=== PATIENT | female | born 1995 | race Two or more races ===

== ENCOUNTER 2019-03-04 08:42 | Emergency (ER) | payer MEDICAID ==
[~2019-03-04] VITALS: Ht 167.6 cm; Wt 65.8 kg
[2019-03-04 09:06] VITALS: BP 145/90
[2019-03-04] MEDS ORDERED: AZITHROMYCIN 250 MG TAB PO ONE (09:15)
[2019-03-04] MEDS ORDERED: cefTRIAXone SODIUM 250 MG VL IM ONE (09:15)
[2019-03-04 10:39] LABS: Urine Bacteria NONE SEEN /hpf (None Seen); Urine Blood Negative /uL (Negative); Urine Mucus FEW (None Seen); Urine Specific Gravity 1.026 (1.001-1.035); Urine WBC 3 /hpf (0 - 5)
== END 2019-03-04 10:24 | disposition left against medical advice (07) ==
LOC: ER 08:42
DX: N89.8 Other specified noninflammatory disorders of vagina (principal); F17.210 Nicotine dependence, cigarettes, uncomplicated; Z59.0 Homelessness; Z91.013 Allergy to seafood
CPT/HCPCS: 81001; 87086; 96372; 99283; J0696

== ENCOUNTER 2019-08-02 10:42 | Emergency (ER) | payer MEDICAID | END 2019-08-02 11:02 | disposition left against medical advice (07) | LOC: ER 10:42 | DX: K13.79 Other lesions of oral mucosa (principal); Z53.21 Procedure and treatment not carried out due to patient leaving prior to being seen by health care provider ==

== ENCOUNTER 2019-08-29 14:22 | Emergency (ER) | payer SELFPAY ==
[~2019-08-29] VITALS: Ht 170.2 cm; Wt 63.5 kg
[2019-08-29] MEDS: ONDANSETRON HCL 4 MG/2 ML VIAL IV ONE (14:45)
[2019-08-29 15:00] VITALS: BP 109/74
[2019-08-29 15:01] LABS: Basophils # (auto) 0 uL; Basophils % (auto) 0.3 % (0.0-2.0); Hemoglobin 12.3 g/dL (12.2-16.2)
[2019-08-29 15:03] LABS: Eosinophils # (auto) 0 uL; Eosinophils % (auto) 0.5 % (0.0-7.0); Hematocrit 39.1 % (36.0-46.0); Lymphocytes # (auto) 2.2 uL; Lymphocytes % (auto) 24.4 % (10.0-50.0); Mean Corpuscular Hemoglobin 22.8 pg (28.0-32.0); Mean Corpuscular Hgb Conc. 31.4 g/dL (32.0-36.0); Mean Corpuscular Volume 72.6 fL (80.0-100.0); Monocytes # (auto) 0.6 uL; Monocytes % (auto) 6.1 % (0.0-12.0); Neutrophils # (auto) 6.3 uL; Neutrophils % (auto) 68.7 % (37.0-80.0); Platelet Count (auto) 347 10^3/uL (140-450); Red Blood Cells 5.39 10^6/uL (4.0-5.20); Red Cell Distribution Width 15.2 % (11.8-14.3); White Blood Cell 9.2 10^3/uL (4.4-10.8)
[2019-08-29 15:19] LABS: Albumin 3.6 g/dL (3.4-5.0); Anion Gap 5 (5-15); Blood Alcohol < 3.0 mg/dL (0-5); Blood Urea Nitrogen 13 mg/dL (7-18); Calcium 8.4 mg/dL (8.5-10.1); Carbon Dioxide 28 mmol/L (21-32); Chloride 108 mmol/L (98-107); Glucose 158 mg/dL (74-106); Potassium 3.5 mmol/L (3.5-5.1); Sodium 141 mmol/L (136-145)
[2019-08-29 15:23] LABS: Alanine Aminotransferase 18 U/L (13-56); Alkaline Phosphatase 83 U/L (45-117); Aspartate Aminotransferase 20 U/L (15-37); BUN/Creatinine Ratio 16.5; Bilirubin, Total 0.3 mg/dL (0.2-1.0); GFR African American 114 mL/min; GFR Non-African American 94 mL/min; Total Protein 7.5 g/dL (6.4-8.2)
== END 2019-08-29 17:04 | disposition home or self-care (01) ==
LOC: EDBD 14:22 → ER 14:22
DX: T40.601A Poisoning by unspecified narcotics, accidental (unintentional), initial encounter (principal); F17.210 Nicotine dependence, cigarettes, uncomplicated; F15.10 Other stimulant abuse, uncomplicated; Z59.0 Homelessness; Z91.013 Allergy to seafood; Y92.89 Other specified places as the place of occurrence of the external cause
CPT/HCPCS: 36415; 80053; 80320; 84702; 85025; 93005; 99284; J2405

== ENCOUNTER 2020-12-18 14:55 | Emergency (ER) | payer MEDICAID ==
[~2020-12-18] VITALS: Ht 167.6 cm; Wt 77.1 kg
[2020-12-18 15:08] VITALS: BP 155/114
[2020-12-18] MEDS ORDERED: IBUPROFEN 800 MG TAB PO ONE (16:15)
[2020-12-18] MEDS ORDERED: ACETAMINOPHEN 500 MG TAB PO ONE (16:15)
== END 2020-12-18 16:33 | disposition home or self-care (01) ==
LOC: ER 14:57
DX: K04.7 Periapical abscess without sinus (principal); F17.210 Nicotine dependence, cigarettes, uncomplicated; F15.10 Other stimulant abuse, uncomplicated; F11.10 Opioid abuse, uncomplicated; Z59.0 Homelessness; Z91.013 Allergy to seafood

== ENCOUNTER 2020-12-30 14:14 | Emergency (ER) | payer MEDICAID ==
[~2020-12-30] VITALS: Ht 167.6 cm; Wt 77.1 kg
[2020-12-30 14:38] LABS: Basophils # (auto) 0 10 ^3/uL (0-0.2); Basophils % (auto) 0.2 % (0.0-2.0); Eosinophils # (auto) 0 10 ^3/uL (0-0.8); Eosinophils % (auto) 0.3 % (0.0-7.0)
[2020-12-30 14:40] LABS: Hematocrit 42.5 % (36.0-46.0); Hemoglobin 14.7 g/dL (12.2-16.2); Lymphocytes # (auto) 2.1 10 ^3/uL (0.4-5.4); Lymphocytes % (auto) 19.8 % (10.0-50.0); Mean Corpuscular Hemoglobin 26.2 pg (28.0-32.0); Mean Corpuscular Hgb Conc. 34.5 g/dL (32.0-36.0); Monocytes # (auto) 0.7 10 ^3/uL (0-1.3); Monocytes % (auto) 6.3 % (0.0-12.0); Neutrophils # (auto) 7.7 10 ^3/uL (1.6-8.6); Neutrophils % (auto) 73.4 % (37.0-80.0); Nucleated Red Blood Cells % 0.1 %; Platelet Count (auto) 285 10^3/uL (140-450); Red Blood Cells 5.59 10^6/uL (4.0-5.20); Red Cell Distribution Width 19.5 % (11.8-14.3); White Blood Cell 10.4 10^3/uL (4.4-10.8)
[2020-12-30 14:54] LABS: Albumin 3.1 g/dL (3.4-5.0); Calcium 8.6 mg/dL (8.5-10.1); Potassium 3.7 mmol/L (3.5-5.1)
[2020-12-30 14:57] LABS: Bilirubin, Total 0.3 mg/dL (0.2-1.0); Total Protein 7.1 g/dL (6.4-8.2)
[2020-12-30 17:04] LABS: Urine Bacteria FEW /hpf (None Seen); Urine Blood Negative /uL (Negative); Urine Mucus MODERATE (None Seen); Urine Specific Gravity 1.033 (1.001-1.035); Urine WBC 28 /hpf (0 - 5)
[2020-12-30 17:09] LABS: Alcohol, Urine < 3.0 mg/dL (0-10); Amphetamine Screen, Urine NEGATIVE (NEGATIVE); Barbiturate Scree,Urine NEGATIVE (NEGATIVE); Benzodiazephine Screen, Urine NEGATIVE (NEGATIVE); Cannabinoid Screen, Urine NEGATIVE (NEGATIVE); Cocaine Screen, Urine NEGATIVE (NEGATIVE); Opiate Scree,Urine NEGATIVE (NEGATIVE); Phencyclidine Screen, Urine NEGATIVE (NEGATIVE)
[2020-12-30 17:53] VITALS: BP 151/95
== END 2020-12-30 18:20 | disposition home or self-care (01) ==
LOC: ER 14:14
DX: O23.42 Unspecified infection of urinary tract in pregnancy, second trimester (principal); O16.2 Unspecified maternal hypertension, second trimester; Z3A.15 15 weeks gestation of pregnancy
CPT/HCPCS: 36415; 76805; 80053; 80307; 81001; 84702; 85025

== ENCOUNTER 2021-01-07 13:39 | Emergency (ER) | payer MEDICAID ==
[~2021-01-07] VITALS: Ht 170.2 cm; Wt 77.1 kg
[2021-01-07] MEDS ORDERED: cefTRIAXone SOD 1,000 MG VL IM ONE (15:30)
[2021-01-07] MEDS ORDERED: ACETAMINOPHEN 500 MG TAB PO ONE (15:30)
[2021-01-07 16:06] VITALS: BP 160/90
== END 2021-01-07 16:29 | disposition home or self-care (01) ==
LOC: ER 13:39
DX: O23.41 Unspecified infection of urinary tract in pregnancy, first trimester (principal); I10 Essential (primary) hypertension; K02.9 Dental caries, unspecified; O99.331 Smoking (tobacco) complicating pregnancy, first trimester; F17.210 Nicotine dependence, cigarettes, uncomplicated; Z91.013 Allergy to seafood; Z3A.12 12 weeks gestation of pregnancy
CPT/HCPCS: 81002; 96372; 99283; J0696

== ENCOUNTER 2021-04-09 16:10 | Observation (INO) | payer MEDICAID ==
[~2021-04-09] VITALS: Ht 167.6 cm; Wt 88.5 kg
[2021-04-09] MEDS ORDERED: BETAMETHASONE ACET (30mg/5ml) 5ml Vial 6mg/ml IM SCH (22:00)
== END 2021-04-09 18:00 | disposition left against medical advice (07) ==
LOC: LDRP 16:10
PROVIDERS: ADMIT Obstetrics & Gynecology; ATTEND Obstetrics & Gynecology
DX: O10.013 Pre-existing essential hypertension complicating pregnancy, third trimester (principal); Z3A.30 30 weeks gestation of pregnancy; Z53.21 Procedure and treatment not carried out due to patient leaving prior to being seen by health care provider
CPT/HCPCS: 59025; 76818; 81002; 94760; G0378; G0379

== ENCOUNTER 2021-05-14 12:57 | Inpatient (IN) | payer MEDICAID ==
[~2021-05-14] VITALS: Ht 167.6 cm; Wt 96.6 kg
[2021-05-14] MEDS ORDERED: LACTATED RINGER'S 1,000 ML IV ONE (13:30)
[2021-05-14] MEDS ORDERED: BETAMETHASONE ACET (30mg/5ml) 5ml Vial 6mg/ml IM ONE (13:30)
[2021-05-14] MEDS ORDERED: hydrALAZINE HCL 20 MG/ML VL IV ONE (13:30)
[2021-05-14] MEDS ORDERED: MAGNESIUM SULFATE 40MG/ML 1,000 ML IV SCH (13:45)
[2021-05-14] MEDS ORDERED: MAGNESIUM SULFATE 100 ML IV ONE (13:45)
[2021-05-14] MEDS ORDERED: LORazepam 2MG/ML-1ML VIAL IV ONE (13:45)
[2021-05-14] MEDS: hydrALAZINE HCL 20 MG/ML VL IV PRN ×2 (14:42→15:38)
[2021-05-14 14:57] LABS: Basophils # (auto) 0 10 ^3/uL (0-0.2); Basophils % (auto) 0.3 % (0.0-2.0); Eosinophils # (auto) 0.1 10 ^3/uL (0-0.8); Eosinophils % (auto) 0.8 % (0.0-7.0); Hemoglobin 13.2 g/dL (12.2-16.2); Lymphocytes # (auto) 1.8 10 ^3/uL (0.4-5.4); Lymphocytes % (auto) 20.2 % (10.0-50.0); Mean Corpuscular Hgb Conc. 34.7 g/dL (32.0-36.0); Mean Corpuscular Volume 80.7 fL (80.0-100.0); Monocytes # (auto) 0.6 10 ^3/uL (0-1.3); Monocytes % (auto) 6.7 % (0.0-12.0); Neutrophils # (auto) 6.4 10 ^3/uL (1.6-8.6); Nucleated Red Blood Cells % 0.3 %; Red Cell Distribution Width 15.5 % (11.8-14.3); White Blood Cell 8.8 10^3/uL (4.4-10.8)
[2021-05-14] MEDS ORDERED: LABE300T3 PO (14:57)
[2021-05-14] MEDS ORDERED: ASPI-543 PO (14:58)
[2021-05-14 15:05] LABS: Albumin 1.6 g/dL (3.4-5.0); Calcium 7.7 mg/dL (8.5-10.1)
[2021-05-14 15:09] LABS: BUN/Creatinine Ratio 14.9; Bilirubin, Total 0.3 mg/dL (0.2-1.0); Total Protein 5.3 g/dL (6.4-8.2); Uric Acid 6.3 mg/dL (2.6-6.0)
[2021-05-14 15:10] LABS: INR 0.9 (0.9-1.15); Partial Thromboplastin Time 29.1 sec (23.6-33.0)
[2021-05-14 15:18] LABS: Urine Bacteria FEW /hpf (None Seen); Urine Blood Negative /uL (Negative); Urine Hyaline Cast FEW /lpf (0 - 2); Urine Mucus FEW (None Seen); Urine Specific Gravity 1.016 (1.001-1.035); Urine WBC 34 /hpf (0 - 5)
[2021-05-14 15:33] LABS: Amphetamine Screen, Urine NEGATIVE (NEGATIVE); Barbiturate Scree,Urine NEGATIVE (NEGATIVE); Benzodiazephine Screen, Urine NEGATIVE (NEGATIVE); Cannabinoid Screen, Urine NEGATIVE (NEGATIVE); Cocaine Screen, Urine NEGATIVE (NEGATIVE); Opiate Scree,Urine NEGATIVE (NEGATIVE); Phencyclidine Screen, Urine NEGATIVE (NEGATIVE)
[2021-05-14 15:34] LABS: Alcohol, Urine < 3.0 mg/dL (0-10)
[2021-05-14 15:43] LABS: Protein, Urine 861.1 mg/dL (0.0-11.9)
[2021-05-14] MEDS ORDERED: LABETALOL HCL 200 MG TAB PO ONE (16:00)
[2021-05-17 06:06] LABS: RPR Non Reactive (Non Reactive)
== END 2021-05-14 16:40 | disposition short-term general hospital (02) | DRG 566 ==
LOC: LDRP 12:57 → OBSVTOIN 13:50
PROVIDERS: ADMIT Obstetrics & Gynecology Obstetrics; ATTEND Obstetrics & Gynecology Obstetrics
DX: O11.3 Pre-existing hypertension with pre-eclampsia, third trimester (principal); Z3A.35 35 weeks gestation of pregnancy; Z91.013 Allergy to seafood; Z79.82 Long term (current) use of aspirin; Z91.19 Patient's noncompliance with other medical treatment and regimen; O10.913 Unspecified pre-existing hypertension complicating pregnancy, third trimester
CPT/HCPCS: 36415; 59025; 76805; 76818; 80053; 80307; 81001; 81002; 82570; 83036; 84156; 84550; 85025; 85362; 85379; 85610; 85730; 86592; 86703; 86762; 87081; 87340; 94760; 96360; 96365; 96366; 96372; 96374; 96375; G0378

== ENCOUNTER 2024-09-11 22:38 | Emergency (ER) | payer MEDICAID ==
[~2024-09-11] VITALS: Ht 170.2 cm; Wt 89.5 kg
[~2024-09-11 22:38] MED LIST: ASPI-543 PO; LABE300T5 PO
[2024-09-11 22:55] VITALS: BP 161/118; PULSE 106; RESP 16; O2SAT 95
[2024-09-13] MEDS ORDERED: AUG875T PO (20:27)
[2024-09-13] MEDS ORDERED: LORA-1130 PO (20:27)
== END 2024-09-12 02:40 | disposition left against medical advice (07) ==
LOC: ER 22:38
DX: H92.02 Otalgia, left ear (principal); Z53.21 Procedure and treatment not carried out due to patient leaving prior to being seen by health care provider

== ENCOUNTER 2024-09-13 20:07 | Emergency (ER) | payer MEDICAID ==
[~2024-09-13] VITALS: Ht 170.2 cm; Wt 88.5 kg
[2024-09-13 20:07] VITALS: PULSE 100; RESP 20; O2SAT 96
[2024-09-13] MEDS ORDERED: AUG875T PO (20:27)
[2024-09-13] MEDS ORDERED: LORA-1130 PO (20:27)
--- NOTE | 2024-09-13 20:27 | ED.PDOC ---
History of Present Illness HPI Comments left ear pain Comments left ear pain for 3 days Time Seen by MD: 20:13 Primary Care Provider: VIVIENNE Mckeon Notes: Nurses Notes Allergies: Uncoded Allergies: SHELL FISH (Allergy, Unknown, 12/31/15) Home Meds Reported Medications Aspirin (Aspir-Low) 81 Mg Tab, 81 MG PO DAILY for 30 Days, MG 05/14/21 Labetalol Hcl (Labetalol Hcl) 300 Mg Tab, 300 MG PO BID for 30 Days, MG 05/14/21 Information Source: Patient, Friend Mode of Arrival: Ambulatory Severity: Mild Timing: Days Duration: Since onset Past Medical History PAST MEDICAL HISTORY: Anemia, HTN Surgical History: Denies all surgeries HAND CUTTER APPRENTICE History: No Pertinent HAND CUTTER APPRENTICE History Family History Family History: Reviewed,noncontributory to illness, Family hx of DM, Family hx of Cancer Social History Smoker: Cigarettes, Less Than 1 Pack/Day Alcohol: Occasionally Drugs: Heroin, Methamphetamine Lives In: Homeless EENTM: reports: ear pain Physical Exam General Appearance: No Apparent Distress, Normal HEENT: Normal ENT Inspection, Pharynx Normal, TM Abnormal (L) (left TM angry) Neck: Full Range of Motion, Non-Tender, Normal, Normal Inspection Respiratory: Chest Non-Tender, Lungs Clear, No Accessory Muscle Use, No Respiratory Distress, Normal Breath Sounds Cardiovascular: No Edema, No JVD, No Murmur, No Gallop, Normal Peripheral Pulses, Regular Rate/Rhythm Breast Exam: Deferred Gastrointestinal: No Organomegaly, Non Tender, No Pulsatile Mass, Normal Bowel Sounds, Soft Genitalia: Deferred Pelvic: Deferred Rectal: Deferred Extremities: No calf tenderness, Normal capillary refill, Normal inspection, Normal range of motion, Non-tender, No pedal edema Musculoskeletal : Apperance: Normal Neurologic: Alert, direct mail clerk II-XII nml as Tested, No Motor Deficits, Normal Affect, Normal Mood, No Sensory Deficits Cerebellar Function: Normal Reflexes: Normal Skin: Dry, Normal Color, Warm Lymphatic: No Adenopathy Was a procedure done? Was a procedure done?: No Differential Dx Considerations may include: OM OE, TM rupture, FB in ear canal, eustachian tube dysfunction Time of 1ST Reevaluation: 20:26 Reevaluation 1ST: Unchanged Patient Education/Counseling: Diagnosis, Treatment, Prognosis, Need For Follow Up Family Education/Counseling: Diagnosis, Treatment, Prognosis, Need For Follow Up Departure 1 Departure Time of Disposition: 20:26 Impression: Primary Impression: Otitis media Qualified Codes: H66.002 - Acute suppurative otitis media without spontaneous rupture of ear drum, left ear Disposition: HOME / SELF CARE / HOMELESS Condition: Good e-Prescriptions Loratadine & Pseudoephedrine (Claritin-D 24 Hour 10-240 mg) 1 Tab Tab 1 TAB PO DAILY for 7 Days, #7 TAB Prov: JAKUB HERNANDEZ MD 09/13/24 Amoxicillin & Pot Clavulanate (AUGMENTIN TABLET) 875 Mg Tb 875 MG PO BID for 7 Days, #14 TAB Prov: JAKUB HERNANDEZ MD 09/13/24 Discharged With: Self, Relative Critical Care Note Critical Care Time?: No Stability Stability form required: No JAKUB HERNANDEZ MD Sep 13, 2024 20:27
[2024-09-13 20:50] VITALS: BP 155/88; PULSE 99; RESP 18; TEMP 98.9; O2SAT 96
== END 2024-09-13 21:03 | disposition home or self-care (01) ==
LOC: ER 20:07
DX: H66.92 Otitis media, unspecified, left ear (principal); I10 Essential (primary) hypertension; F17.210 Nicotine dependence, cigarettes, uncomplicated; Z59.00 Homelessness unspecified; Z91.013 Allergy to seafood

== ENCOUNTER 2024-09-16 05:51 | Emergency (ER) | payer MEDICAID ==
[~2024-09-16] VITALS: Ht 170.2 cm; Wt 85.4 kg
[~2024-09-16 05:51] MED LIST changes: +AUG875T PO; +LORA-1130 PO
[2024-09-16 06:26] VITALS: BP 144/102; PULSE 92; RESP 14; O2SAT 93
[2024-09-16] MEDS ORDERED: PSEUDOEPHEDRINE HCL 30 MG TAB PO ONE (07:45)
[2024-09-16] MEDS ORDERED: ACETAMINOPHEN 325 MG TAB PO ONE (07:45)
--- NOTE | 2024-09-16 07:45 | ED.PDOC ---
History of Present Illness HPI Comments 29 year old female presents to the ED with chief complaint of flu-like illness. Patient reports that she has been experiencing a cough with associated nasal congestion, left ear clogging, and left ear pain for the past week. Patient relays that she was seen 2 days ago and had been prescribed antibiotics, how ever, no relief has been noted. Patient states Claritin was not covered by her insurance and she was not able to get any. Patient denies any N/V/D, fever, chills, dizziness, headache, or SOB. Chief Complaint: Flu like Time Seen by MD: 07:41 Primary Care Provider: VIVIENNE MINOR Reviewed Notes: Nurses Notes, Medications, Allergies Allergies: Uncoded Allergies: SHELL FISH (Allergy, Unknown, 12/31/15) Home Meds Active Scripts Loratadine & Pseudoephedrine (Claritin-D 24 Hour 10-240 mg) 1 Tab Tab, 1 TAB PO DAILY for 7 Days, #7 TAB Prov:JAKUB HERNANDEZ MD 09/13/24 Amoxicillin & Pot Clavulanate (AUGMENTIN TABLET) 875 Mg Tb, 875 MG PO BID for 7 Days, #14 TAB Prov:JAKUB HERNANDEZ MD 09/13/24 Reported Medications Aspirin (Aspir-Low) 81 Mg Tab, 81 MG PO DAILY for 30 Days, MG 05/14/21 Labetalol Hcl (Labetalol Hcl) 300 Mg Tab, 300 MG PO BID for 30 Days, MG 05/14/21 Information Source: Patient Mode of Arrival: Ambulatory Severity: Moderate Timing: Weeks Duration: Since onset Prehospital treatment: None Past Medical History PAST MEDICAL HISTORY: Anemia, HTN Surgical History: Denies all surgeries ROLLED SEAT TRIMMER History: No Pertinent ROLLED SEAT TRIMMER History Family History Family History: Reviewed,noncontributory to illness, Family hx of DM, Family hx of Cancer Social History Smoker: Cigarettes, Less Than 1 Pack/Day Alcohol: Occasionally Drugs: Heroin, Methamphetamine Lives In: Homeless Constitutional: denies: chills, diaphoresis, fatigue, fever, malaise, sweats, weakness, others EENTM: reports: ear pain, hearing loss, nose congestion; denies: blurred vision, double vision, ear bleeding, ear discharge, ear drainage, ear ringing, eye pain, eye redness, mouth pain, mouth swelling, nasal discharge, nose bleeding, nose pain, photophobia, tearing, throat pain, throat swelling, voice changes, others Respiratory: reports: cough; denies: hemoptysis, orthopnea, SOB at rest, shortness of breath, SOB with excertion, stridor, wheezing, others Cardiovascular: denies: chest pain, dizzy spells, diaphoresis, Dyspnea on exertion, edema, irregular heart beat, left arm pain, lightheadedness, palpitations, PND, syncope, others Gastrointestinal: denies: abdomen distended, abdominal pain, blood streaked bowels, constipated, diarrhea, dysphagia, difficulty swallowing, hematemesis, melena, nausea, poor appetite, poor fluid intake, rectal bleeding, rectal pain, vomiting, others Genitourinary: denies: abnormal vagina bleeding, burning, dyspareunia, dysuria, flank pain, frequency, hematuria, incontinence, pain, , vagina discharge, urgency, others Neurological: denies: dizziness, fainting, headache, left sided numbness, left sided weakness, numbness, paresthesia, pre-existing deficit, right sided numbness, right sided weakness, seizure, speech problems, tingling, tremors, weakness, others Musculoskeletal: denies: back pain, gout, joint pain, joint swelling, muscle pain, muscle stiffness, neck pain, others Integumetry: denies: bruises, change in color, change in hair/nails, dryness, laceration, lesions, lumps, rash, wounds, others Allergic/Immunocompromised: denies: Difficulty Healing, Frequent Infections, Hives, Itching, others Hematologic/Lymphatic: denies: anemia, blood clots, easy bleeding, easy bruising, swollen glands, others Endocrine: denies: excessive hunger, excessive sweating, excessive thirst, excessive urination, flushing, intolerance to cold, intolerance to heat, unexplained weight gain, unexplained weight loss, others Psychiatric: denies: anxiety, bipolar disorder, depression, hopeless, panic disorder, schizophrenia, sleepless, suicidal, others All Other Systems: Reviewed and Negative Physical Exam General Appearance: No Apparent Distress, Normal HEENT: Normal ENT Inspection, PERRL/EOMI, TM Abnormal (L) (Bulging TM), TM Abnormal (R) (Bulging TM), Other (Nasal congestion) Neck: Full Range of Motion, Non-Tender, Normal, Normal Inspection Respiratory: Chest Non-Tender, Lungs Clear, No Accessory Muscle Use, No Respiratory Distress, Normal Breath Sounds Cardiovascular: No Edema, No JVD, No Murmur, No Gallop, Normal Peripheral Pulses, Regular Rate/Rhythm Breast Exam: Deferred Gastrointestinal: No Organomegaly, Non Tender, No Pulsatile Mass, Normal Bowel Sounds, Soft Genitalia: Deferred Pelvic: Deferred Rectal: Deferred Extremities: No calf tenderness, Normal capillary refill, Normal inspection, Normal range of motion, Non-tender, No pedal edema Musculoskeletal : Apperance: Normal Neurologic: Alert, insole stiffener II-XII nml as Tested, No Motor Deficits, Normal Affect, Normal Mood, No Sensory Deficits Cerebellar Function: Normal Reflexes: Normal Skin: Dry, Normal Color, Warm Lymphatic: No Adenopathy Was a procedure done? Was a procedure done?: No Differential Dx Considerations may include: Viral syndrome X-Ray, Labs, Meds, VS Vital Signs Date Time Temp Pulse Resp B/P (MAP) Pulse Ox O2 Delivery O2 Flow Rate FiO2 09/16/24 06:26 98.1 92 14 144/102 (116) 93 Time of 1ST Reevaluation: 08:41 Reevaluation 1ST: Unchanged Patient Education/Counseling: Diagnosis, Treatment Family Education/Counseling: Diagnosis, Treatment Additional Information I reviewed the following notes from patient's past medical encounters: 09/13/24 for otitis media The following tests were ordered, and results were reviewed by me: None I reviewed and agreed with the following test results read by other providers: None Additional Information was gathered from interviewing the following independent historians: Spouse I discussed treatment and results with medical personnel and spouse. Departure 1 Departure Time of Disposition: 08:06 (Patient with a viral syndrome who has been unable to take any [id number] medicines can she can not afford them. We will discharge patient with outpatient follow up.) Impression: Primary Impression: Viral syndrome Additional Impression: Ear pain Qualified Codes: H92.03 - Otalgia, bilateral Disposition: 01 HOME / SELF CARE / HOMELESS Condition: Stable Additional Instructions: You likely have a viral illness. It is important to stay well rested and well hydrated. You can take Tylenol and Motrin as needed for pain and fever. For a sore throat you can drink warm tea with honey. You can take [id number] pseudoephedrine for nasal congestion. He should follow up with your regular doctor within 1 week to ensure you are doing better. If your symptoms worsen or you have any other concerns please return to the emergency room. e-Prescriptions Pseudoephedrine (Sudafed 12 Hour) 120 Mg Tab 1 TAB PO BID PRN for 5 Days, #10 TAB Prov: YOGI MOTLEY MD 09/16/24 Ibuprofen (Ibuprofen) 400 Mg Tab 1 TAB PO Q6HPRN for 5 Days, #20 TAB Prov: YOGI MOTLEY MD 09/16/24 Acetaminophen (Tylenol) 325 Mg Tb 650 MG PO TID PRN for 5 Days, #30 TAB Prov: YOGI MOTLEY MD 09/16/24 Discharged With: Self Critical Care Note Critical Care Time?: No Stability Stability form required: No Heart Score Heart Score: Heart Score Response (Comments) Value History N/A 0 EKG N/A 0 Age N/A 0 Risk Factors N/A 0 Troponin N/A 0 Total 0 I personally scribed for YOGI MOTLEY MD ([email or web address]) on 09/16/24 at 07:45. Electronically submitted by Daryl Mitchell ([email or web address]). YOGI MOTLEY MD Sep 16, 2024 07:45
[2024-09-16] MEDS ORDERED: IBUP-1453 PO (08:08)
[2024-09-16] MEDS ORDERED: PSEU120T2 PO (08:08)
[2024-09-16] MEDS ORDERED: ACET-1079 PO (08:08)
== END 2024-09-16 08:02 | disposition home or self-care (01) ==
LOC: ER 05:51
DX: B34.9 Viral infection, unspecified (principal); H92.02 Otalgia, left ear; I10 Essential (primary) hypertension; Z59.00 Homelessness unspecified; F17.210 Nicotine dependence, cigarettes, uncomplicated; Z91.013 Allergy to seafood

== ENCOUNTER 2025-04-25 13:32 | Emergency (ER) | payer MEDICAID ==
[~2025-04-25] VITALS: Ht 170.2 cm; Wt 78.0 kg
[~2025-04-25 13:32] MED LIST changes: +ACET-1079 PO; +IBUP-1453 PO; +PSEU120T2 PO
--- NOTE | 2025-04-25 14:09 | ED.PDOC ---
Eye-HPI HPI Comments A 29 YEAR OLD FEMALE PRESENTS TO THE ED WITH COMPLAINT OF JAW PAIN. PATIENT STATES THAT SHE HAS BEEN HAVING RIGHT JAW PAIN AND SWALLOWING SINCE YESTERDAY. PATIENT STATES THAT SHE HAS MULTIPLE BROKEN TEETH. PATIENT STATES THE PAIN IS 8/10.PATIENT DENIES FEVER, CHILLS, SHORTNESS OF BREATH, CHEST PAIN, ABDOMINAL PAIN, NAUSEA, VOMITING, HEADACHE, OR OTHER COMPLAINTS. NO OTHER SYMPTOMS OR MODIFYING FACTORS AT THIS TIME. PATIENT IS ALERT, ORIENTED X 4, AND HAS STEADY GAIT. Chief Complaint: Tooth Pain Time Seen by MD: 14:05 Primary Care Provider: VIVIENNE MINOR Reviewed Notes: Nurses Notes, Medications, Allergies Allergies: Uncoded Allergies: SHELL FISH (Allergy, Unknown, 12/31/15) Home Meds Active Scripts Ibuprofen (Ibuprofen) 800 Mg Tab, 1 TAB PO TID, #30 TAB Prov:MELISSA CARPENTER 04/25/25 Clindamycin Hcl (Clindamycin Hcl) 300 Mg Cap, 1 CAP PO TID, #30 CAP Prov:MELISSA CARPENTER 04/25/25 Pseudoephedrine (Sudafed 12 Hour) 120 Mg Tab, 1 TAB PO BID PRN for 5 Days, #10 TAB Prov:YOGI MOTLEY MD 09/16/24 Ibuprofen (Ibuprofen) 400 Mg Tab, 1 TAB PO Q6HPRN for 5 Days, #20 TAB Prov:YOGI MOTLEY MD 09/16/24 Acetaminophen (Tylenol) 325 Mg Tb, 650 MG PO TID PRN for 5 Days, #30 TAB Prov:YOGI MOTLEY MD 09/16/24 Loratadine & Pseudoephedrine (Claritin-D 24 Hour 10-240 mg) 1 Tab Tab, 1 TAB PO DAILY for 7 Days, #7 TAB Prov:JAKUB HERNANDEZ MD 09/13/24 Amoxicillin & Pot Clavulanate (AUGMENTIN TABLET) 875 Mg Tb, 875 MG PO BID for 7 Days, #14 TAB Prov:JAKUB HERNANDEZ MD 09/13/24 Reported Medications Aspirin (Aspir-Low) 81 Mg Tab, 81 MG PO DAILY for 30 Days, MG 05/14/21 Labetalol Hcl (Labetalol Hcl) 300 Mg Tab, 300 MG PO BID for 30 Days, MG 05/14/21 Information Source: Patient Mode of Arrival: Ambulatory Timing: Days Duration: Days Prehospital treatment: None Quality: Pain, Red Lids: Normal Conjunctiva: Normal Cornea: Normal Pupils: Normal EOM: Normal Fundus: Normal Slit lamp exam: Normal Anterior chamber: Normal Mouth Location: Right, Lower, Tooth/Teeth, Gums Mouth: Right, Lower, Premolar, Molar, Tender, Carious, Broken ENT Ear Exam: Normal Nose: Normal Sinuses: Normal Oropharynx: Normal Onset: Spontaneous Throat Exposed to: None History of: None Last Tetanus: UTD Modifying factors: Cold, Chewing Associated signs and symptoms: Tooth Pain Past Medical History PAST MEDICAL HISTORY: Anemia, HTN Surgical History: Denies all surgeries BRIEF WRITER History: No Pertinent BRIEF WRITER History Family History Family History: Reviewed,noncontributory to illness, Family hx of DM, Family hx of Cancer Social History Smoker: Cigarettes, Less Than 1 Pack/Day Alcohol: Occasionally Drugs: Heroin, Methamphetamine Lives In: Homeless Constitutional: denies: chills, diaphoresis, fatigue, fever, malaise, sweats, weakness, others EENTM: reports: mouth pain (RIGHT LOWER TOOTH PAIN ); denies: blurred vision, double vision, ear bleeding, ear discharge, ear drainage, ear pain, ear ringing, eye pain, eye redness, hearing loss, nasal discharge, nose bleeding, nose congestion, nose pain, photophobia, tearing, throat pain, throat swelling, voice changes Respiratory: denies: cough, hemoptysis, orthopnea, SOB at rest, shortness of breath, SOB with excertion, stridor, wheezing, others Cardiovascular: denies: chest pain, dizzy spells, diaphoresis, Dyspnea on exertion, edema, irregular heart beat, left arm pain, lightheadedness, palpitations, PND, syncope, others Gastrointestinal: denies: abdomen distended, abdominal pain, blood streaked bowels, constipated, diarrhea, dysphagia, difficulty swallowing, hematemesis, melena, nausea, poor appetite, poor fluid intake, rectal bleeding, rectal pain, vomiting, others Genitourinary: denies: abnormal vagina bleeding, burning, dyspareunia, dysuria, flank pain, frequency, hematuria, incontinence, pain, , vagina discharge, urgency, others Neurological: denies: dizziness, fainting, headache, left sided numbness, left sided weakness, numbness, paresthesia, pre-existing deficit, right sided n umbness, right sided weakness, seizure, speech problems, tingling, tremors, weakness, others Musculoskeletal: denies: back pain, gout, joint pain, joint swelling, muscle pain, muscle stiffness, neck pain, others Integumetry: denies: bruises, change in color, change in hair/nails, dryness, laceration, lesions, lumps, rash, wounds, others Allergic/Immunocompromised: denies: Difficulty Healing, Frequent Infections, Hives, Itching, others Hematologic/Lymphatic: denies: anemia, blood clots, easy bleeding, easy bruising, swollen glands, others Endocrine: denies: excessive hunger, excessive sweating, excessive thirst, excessive urination, flushing, intolerance to cold, intolerance to heat, unexplained weight gain, unexplained weight loss, others Psychiatric: denies: anxiety, bipolar disorder, depression, hopeless, panic disorder, schizophrenia, sleepless, suicidal, others All Other Systems: Reviewed and Negative Physical Exam General Appearance: No Apparent Distress, Normal HEENT: Normal ENT Inspection, PERRL/EOMI, Pharynx Normal, TMs Normal, Other (ERYTHEMA AND SWELLING ON RIGHT LOWER GUM AROUND TOOTH, MILD RIGHT LOWER FACIAL SWELLING, NO FACIAL REDNESS AND HARDNESS. ) Neck: Full Range of Motion, Non-Tender, Normal, Normal Inspection Respiratory: Chest Non-Tender, Lungs Clear, No Accessory Muscle Use, No Respiratory Distress, Normal Breath Sounds Cardiovascular: No Edema, No JVD, No Murmur, No Gallop, Normal Peripheral Pulses, Regular Rate/Rhythm Breast Exam: Deferred Gastrointestinal: No Organomegaly, Non Tender, No Pulsatile Mass, Normal Bowel Sounds, Soft Genitalia: Deferred Pelvic: Deferred Rectal: Deferred Extremities: No calf tenderness, Normal capillary refill, Normal inspection, Normal range of motion, Non-tender, No pedal edema Musculoskeletal : Apperance: Normal Neurologic: Alert, carbide tool maker II-XII nml as Tested, No Motor Deficits, Normal Affect, Normal Mood, No Sensory Deficits Cerebellar Function: Normal Reflexes: Normal Skin: Dry, Normal Color, Warm Peripheral Pulses: 2+ carotid (R), 2+ carotid (L) Lymphatic: No Adenopathy Was a procedure done? Was a procedure done?: No EENT DIFF Eye: N/A Ear: Otitis Media, Dental Sore Throat: Peritonsillar Abscess, Peritonsillar Cellulitis, Other (DENTAL CARIES) X-Ray, Labs, Meds, VS Vital Signs Date Time Temp Pulse Resp B/P (MAP) Pulse Ox O2 Delivery O2 Flow Rate FiO2 04/25/25 14:18 98.1 92 18 162/90 (114) 98 98.1 04/25/25 14:18 92 18 98 Room Air 04/25/25 13:35 98.2 97 18 168/95 100 98.2 Current Medications Medications (Trade) Dose Ordered Sig/Azam Route Start Time Stop Time Status Last Admin Ceftriaxone Sodium 50 ml @ 100 mls/hr ONCE ONCE IV 04/25/25 14:00 04/25/25 14:29 DC 04/25/25 14:15 Clindamycin Phosphate 50 ml @ 50 mls/hr ONCE ONCE IV 04/25/25 14:00 04/25/25 14:59 DC 04/25/25 14:52 Ketorolac Tromethamine (Toradol Injection) 30 mg ONCE ONCE IV 04/25/25 14:00 04/25/25 14:01 DC 04/25/25 14:16 X-Ray, Labs, Meds, VS Comment COURSE: EXTERNAL MEDICAL RECORDS REVIEWED: [NONE] INDEPENDENT HISTORIANS: [NONE] SOCIAL DETERMINANTS OF HEALTH: [NONE] LABS ORDERED: NONE REVIEWED AND INTERPRETED RESULTS: NONE IMAGING ORDERED: NONE TREATMENTS ORDERED: TORADOL 30 MG CLINDAMYCIN 900 MG ROCEPHIN 1 G PROCEDURES PERFORMED: NONE CRITICAL CARE TIME: NONE I HAVE DISCUSSED THE PATIENT WITH THE ATTENDING PHYSICIAN, SHE AGREES WITH THE PATIENT'S PLAN OF CARE AND DISPOSITION. BASED ON HISTORY OF PRESENT ILLNESS, AND PHYSICAL EXAM, PATIENT WILL BE DISCHARGED HOME. DISCUSSED PLAN FOR DISCHARGE HOME WITH RX [CLINDAMYCIN AND MOTRIN]. MEDICATION WARNINGS GIVEN. SHARED DECISION MAKING: PATIENT INSTRUCTED TO FOLLOW UP WITH ER TOMORROW RECHECK AND F/U DENTIST IN 2 DAYS FOR RE-EVALUATION OF SYMPTOMS. PATIENT VERBALIZES UNDERSTANDING TO RETURN TO ED FOR NEW OR WORSENING SYMPTOMS OR IF FOLLOW UP WITH PCP CANNOT BE OBTAINED. PATIENT FEELS COMFORTABLE GOING HOME AT THIS TIME. ALL QUESTIONS ADDRESSED AT TIME OF DISCHARGE. Time of 1ST Reevaluation: 15:41 Reevaluation 1ST: Improved Patient Education/Counseling: Diagnosis, Treatment, Need For Follow Up Family Education/Counseling: Diagnosis, Treatment, No Family Present Medical Screening: No EMC Exist At This Time SEPSIS Sepsis Screen Date sepsis recognized/suspect: Apr 25, 2025 Time Sepsis recognized/suspect: 7 Recent Procedure: No On Antibiotic Therapy: No Respiratory Rate >20: No Heart Rate >90: No Temp<36 C (96.8 F) or >38.3 C: No SBP <90 or MAP <65 mmHG: No New Acute Mental Status Change: No Is the patient on CPAP, BIPAP,: No Physician Orders Heplock Iv (04/25/25 ) Vital Signs Date Time Temp Pulse Resp B/P (MAP) Pulse Ox O2 Delivery O2 Flow Rate FiO2 04/25/25 14:18 98.1 92 18 162/90 (114) 98 98.1 04/25/25 14:18 92 18 98 Room Air 04/25/25 13:35 98.2 97 18 168/95 100 98.2 Medications Medications Dose Ordered Sig/Azam Route Start Time Stop Time Status Last Admin Dose Admin Ceftriaxone Sodium 50 ml @ 100 mls/hr ONCE ONCE IV 04/25/25 14:00 04/25/25 14:29 DC 04/25/25 14:15 Clindamycin Phosphate 50 ml @ 50 mls/hr ONCE ONCE IV 04/25/25 14:00 04/25/25 14:59 DC 04/25/25 14:52 Ketorolac Tromethamine 30 mg ONCE ONCE IV 04/25/25 14:00 04/25/25 14:01 DC 04/25/25 14:16 Departure 1 Departure Time of Disposition: 15:33 Impression: Primary Impression: Dental infection Disposition: HOME / SELF CARE / HOMELESS Condition: Stable Additional Instructions: PLEASE FOLLOW UP WITH THE ED TOMORROW FOR FURTHER EVALUATION. e-Prescriptions Ibuprofen (Ibuprofen) 800 Mg Tab 1 TAB PO TID, #30 TAB Prov: MELISSA CARPENTER 04/25/25 Clindamycin Hcl (Clindamycin Hcl) 300 Mg Cap 1 CAP PO TID, #30 CAP Prov: MELISSA CARPENTER 04/25/25 Discharged With: Self, Spouse Critical Care Note Critical Care Time?: No Stability Stability form required: No Heart Score Heart Score: Heart Score Response (Comments) Value History N/A 0 EKG N/A 0 Age N/A 0 Risk Factors N/A 0 Troponin N/A 0 Total 0 I personally scribed for MELISSA CARPENTER ([email or web address]) on 04/25/25 at 14:09. Electronically submitted by Thompson Jiang ([email or web address]). I personally scribed for MELISSA CARPENTER ([email or web address]) on 04/25/25 at 14:55. Electronically submitted by Thompson Jiang ([email or web address] [email or web address]). I personally scribed for MELISSA CARPENTER ([email or web address]) on 04/25/25 at 15:27. Electronically submitted by Thompson Jiang ([email or web address] [email or web address]). MELISSA CARPENTER Apr 25, 2025 14:09
[2025-04-25] MEDS: KETOROLAC TROMETH 30 MG/ML 1ML VIAL IV ONE (14:16)
[2025-04-25] MEDS: CLINDAMYCIN 900MG IV 50 ML IV ONE (14:52)
[2025-04-25] MEDS ORDERED: CLIN1CAP70 PO (15:41)
[2025-04-25] MEDS ORDERED: IBUP-1456 PO (15:41)
[2025-04-25 15:47] VITALS: BP 158/92; PULSE 80; RESP 18; TEMP 98.1; O2SAT 96
== END 2025-04-25 15:45 | disposition home or self-care (01) ==
LOC: ER 13:32
DX: K04.7 Periapical abscess without sinus (principal); I10 Essential (primary) hypertension; F17.210 Nicotine dependence, cigarettes, uncomplicated; Z79.899 Other long term (current) drug therapy; Z91.013 Allergy to seafood
CPT/HCPCS: 96365; 96367; 96375; 99284; J0696; J1885; J3490

== ENCOUNTER 2025-06-10 17:47 | Emergency (ER) | payer MEDICAID ==
[~2025-06-10] VITALS: Ht 170.2 cm; Wt 83.5 kg
[~2025-06-10 17:47] MED LIST changes: +CLIN1CAP70 PO; +IBUP-1456 PO
[2025-06-10 17:50] VITALS: BP 151/122; PULSE 112; RESP 19; TEMP 97.2; O2SAT 95
[2025-06-10] MEDS ORDERED: CIPROFLOXACIN HCL 500 MG TAB PO ONE (18:15)
[2025-06-10] MEDS ORDERED: CIPR1SUS8 OT (18:19)
[2025-06-10] MEDS ORDERED: AMLO1TAB22 PO (18:19)
[2025-06-10] MEDS ORDERED: CIPR500T4 PO (18:19)
--- NOTE | 2025-06-10 18:22 | ED.PDOC ---
History of Present Illness HPI Comments 29 year old female with PMHx HTN, anemia, presents to the ED with a chief complaint of LT ear pain onset 3 days. Patient states she began experiencing LT ear swelling, pain, purulent discharge for the past 3 days. Upon ED arrival, patient was hypertensive, states she is not complaint with HTN medication. Pat ient was advised IV antibiotics was recommended, refused and requested only oral antibiotics. Denies fever, chills, chest pain, dizziness, shortness of breath, nausea, vomiting, diarrhea, sore throat. No other symptoms or modifying factors present at this time. Chief Complaint: Earache Time Seen by MD: 18:10 Primary Care Provider: VIVIENNE Mckeon Notes: Medications, Allergies Allergies: Uncoded Allergies: SHELL FISH (Allergy, Unknown, 12/31/15) Home Meds Active Scripts Amlodipine Besylate (Amlodipine Besylate) 5 Mg Tab, 1 TAB PO DAILY for 90 Days, #90 TAB 3 Refills Prov:EILEEN SARMIENTO MD 06/10/25 Ciprofloxacin-Dexamethasone (Ciprofloxacin/Dexamethaso 0.3-0.1 %) 1 Katelin Katelin, 1 KATELIN OT 5XD for 10 Days, #30 ML Prov:EILEEN SARMIENTO MD 06/10/25 Ciprofloxacin Hcl (Ciprofloxacin Hcl) 500 Mg Tab, 1 TAB PO BID for 10 Days, #20 TAB Prov:EILEEN SARMIENTO MD 06/10/25 Ibuprofen (Ibuprofen) 800 Mg Tab, 1 TAB PO TID, #30 TAB Prov:MELISSA CARPENTER 04/25/25 Clindamycin Hcl (Clindamycin Hcl) 300 Mg Cap, 1 CAP PO TID, #30 CAP Prov:MELISSA CARPENTER 04/25/25 Pseudoephedrine (Sudafed 12 Hour) 120 Mg Tab, 1 TAB PO BID PRN for 5 Days, #10 TAB Prov:YOGI MOTLEY MD 09/16/24 Ibuprofen (Ibuprofen) 400 Mg Tab, 1 TAB PO Q6HPRN for 5 Days, #20 TAB Prov:YOGI MOTLEY MD 09/16/24 Acetaminophen (Tylenol) 325 Mg Tb, 650 MG PO TID PRN for 5 Days, #30 TAB Prov:YOGI MOTLEY MD 09/16/24 Loratadine & Pseudoephedrine (Claritin-D 24 Hour 10-240 mg) 1 Tab Tab, 1 TAB PO DAILY for 7 Days, #7 TAB Prov:JAKUB HERNANDEZ MD 09/13/24 Amoxicillin & Pot Clavulanate (AUGMENTIN TABLET) 875 Mg Tb, 875 MG PO BID for 7 Days, #14 TAB Prov:JAKUB HERNANDEZ MD 09/13/24 Reported Medications Aspirin (Aspir-Low) 81 Mg Tab, 81 MG PO DAILY for 30 Days, MG 05/14/21 Labetalol Hcl (Labetalol Hcl) 300 Mg Tab, 300 MG PO BID for 30 Days, MG 05/14/21 Information Source: Patient Mode of Arrival: Ambulatory Severity: Moderate Timing: Days Duration: Since onset Prehospital treatment: None Past Medical History PAST MEDICAL HISTORY: Anemia, HTN Surgical History: Denies all surgeries CASH ACCOUNTANT History: No Pertinent CASH ACCOUNTANT History Family History Family History: Reviewed,noncontributory to illness, Family hx of DM, Family hx of Cancer Social History Smoker: Cigarettes, Less Than 1 Pack/Day Alcohol: Occasionally Drugs: Heroin, Methamphetamine Lives In: Homeless Constitutional: denies: chills, diaphoresis, fatigue, fever, malaise, sweats, weakness, others EENTM: reports: ear drainage, ear pain; denies: blurred vision, double vision, ear bleeding, ear discharge, ear ringing, eye pain, eye redness, hearing loss, mouth pain, mouth swelling, nasal discharge, nose bleeding, nose congestion, n ose pain, photophobia, tearing, throat pain, throat swelling, voice changes, others Respiratory: denies: cough, hemoptysis, orthopnea, SOB at rest, shortness of breath, SOB with excertion, stridor, wheezing, others Cardiovascular: denies: chest pain, dizzy spells, diaphoresis, Dyspnea on exertion, edema, irregular heart beat, left arm pain, lightheadedness, palpitations, PND, syncope, others Gastrointestinal: denies: abdomen distended, abdominal pain, blood streaked bowels, constipated, diarrhea, dysphagia, difficulty swallowing, hematemesis, melena, nausea, poor appetite, poor fluid intake, rectal bleeding, rectal pain, vomiting, others Genitourinary: denies: abnormal vagina bleeding, burning, dyspareunia, dysuria, flank pain, frequency, hematuria, incontinence, pain, , vagina discharge, urgency, others Neurological: denies: dizziness, fainting, headache, left sided numbness, left sided weakness, numbness, paresthesia, pre-existing deficit, right sided numbness, right sided weakness, seizure, speech problems, tingling, tremors, weakness, others Musculoskeletal: denies: back pain, gout, joint pain, joint swelling, muscle p ain, muscle stiffness, neck pain, others Integumetry: denies: bruises, change in color, change in hair/nails, dryness, laceration, lesions, lumps, rash, wounds, others Allergic/Immunocompromised: denies: Difficulty Healing, Frequent Infections, Hives, Itching, others Hematologic/Lymphatic: denies: anemia, blood clots, easy bleeding, easy bruising, swollen glands, others Endocrine: denies: excessive hunger, excessive sweating, excessive thirst, excessive urination, flushing, intolerance to cold, intolerance to heat, unexplained weight gain, unexplained weight loss, others Psychiatric: denies: anxiety, bipolar disorder, depression, hopeless, panic disorder, schizophrenia, sleepless, suicidal, others All Other Systems: Reviewed and Negative Physical Exam General Appearance: Normal HEENT: Normal ENT Inspection, Pharynx Normal, TMs Normal Neck: Full Range of Motion, Non-Tender, Normal, Normal Inspection Respiratory: Chest Non-Tender, Lungs Clear, No Accessory Muscle Use, No Respiratory Distress, Normal Breath Sounds Cardiovascular: No Edema, No JVD, No Murmur, No Gallop, Normal Peripheral Pulses, Regular Rate/Rhythm Breast Exam: Deferred Gastrointestinal: No Organomegaly, Non Tender, No Pulsatile Mass, Normal Bowel Sounds, Soft Genitalia: Deferred Pelvic: Deferred Rectal: Deferred Extremities: No calf tenderness, Normal capillary refill, Normal inspection, Normal range of motion, Non-tender, No pedal edema Musculoskeletal : Apperance: Normal Neurologic: Alert, mold shop supervisor II-XII nml as Tested, No Motor Deficits, Normal Affect, Normal Mood, No Sensory Deficits Cerebellar Function: Normal Reflexes: Normal Skin: Dry, Normal Color, Warm Lymphatic: No Adenopathy Was a procedure done? Was a procedure done?: No Differential Dx Considerations may include: DDX: otitis media, otitis externa, sepsis, osteomyelitis, mastoiditis and others X-Ray, Labs, Meds, VS Vital Signs Date Time Temp Pulse Resp B/P (MAP) Pulse Ox O2 Delivery O2 Flow Rate FiO2 06/10/25 17:50 97.2 112 19 151/122 95 97.2 Time of 1ST Reevaluation: 18:40 Reevaluation 1ST: Unchanged Patient Education/Counseling: Diagnosis, Treatment, Prognosis Family Education/Counseling: No Family Present SEPSIS Sepsis Screen Date sepsis recognized/suspect: Jun 10, 2025 Time Sepsis recognized/suspect: 1751 Recent Procedure: No On Antibiotic Therapy: No Respiratory Rate >20: No Heart Rate >90: Yes Temp<36 C (96.8 F) or >38.3 C: No SBP <90 or MAP <65 mmHG: No New Acute Mental Status Change: No Is the patient on CPAP, BIPAP,: No Vital Signs Date Time Temp Pulse Resp B/P (MAP) Pulse Ox O2 Delivery O2 Flow Rate FiO2 06/10/25 17:50 97.2 112 19 151/122 95 97.2 Departure 1 Departure Time of Disposition: 20:30 Impression: Primary Impression: Otitis externa Additional Impression: Amphetamine abuse Disposition: 01 HOME / SELF CARE / HOMELESS Condition: Stable e-Prescriptions Amlodipine Besylate (Amlodipine Besylate) 5 Mg Tab 1 TAB PO DAILY for 90 Days, #90 TAB 3 Refills Prov: EILEEN SARMIENTO MD 06/10/25 Ciprofloxacin-Dexamethasone (Ciprofloxacin/Dexamethaso 0.3-0.1 %) 1 Katelin Katelin 1 KATELIN OT 5XD for 10 Days, #30 ML Prov: EILEEN SARMIENTO MD 06/10/25 Ciprofloxacin Hcl (Ciprofloxacin Hcl) 500 Mg Tab 1 TAB PO BID for 10 Days, #20 TAB Prov: EILEEN SARMIENTO MD 06/10/25 Discharged With: Self Critical Care Note Critical Care Time?: No Stability Stability form required: No Heart Score Heart Score: Heart Score Response (Comments) Value History N/A 0 EKG N/A 0 Age N/A 0 Risk Factors N/A 0 Troponin N/A 0 Total 0 I personally scribed for EILEEN SARMIENTO MD ([email or web address]) on 06/10/25 at 18:22. Electronically submitted by Paula Alejandro ([email or web address]). EILEEN SARMIENTO MD Jun 10, 2025 18:22
== END 2025-06-10 18:20 | disposition home or self-care (01) ==
LOC: ER 17:47
DX: H60.92 Unspecified otitis externa, left ear (principal); I10 Essential (primary) hypertension; F15.10 Other stimulant abuse, uncomplicated; F17.210 Nicotine dependence, cigarettes, uncomplicated; Z79.1 Long term (current) use of non-steroidal anti-inflammatories (NSAID); Z79.82 Long term (current) use of aspirin; Z79.899 Other long term (current) drug therapy; Z91.013 Allergy to seafood